=== PATIENT | female | born 1995 | race Caucasian/White ===

== ENCOUNTER 2017-01-12 13:25 | Emergency (ER) | payer OTHER ==
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
--- NOTE | 2017-01-16 15:53 | ED MED RECONCILIATION SUMMARY ---
Patient: ROCIO CRUZ Medication Reconciliation Report [facility] VisitID: [id number] [address] [place] [address] 21y, F Registration Date/Time: 01/12/2017 Weight: 107.0 kg Height/Length: 66 in. BMI: 38.1 ALLERGIES: None The patient's Home Medications are listed below: NONE. The source(s) of the original Home Medication information: Not obtained. The following Medications were given to the patient in the Emergency Department: None. The following Medications were prescribed to the patient: Robaxin 750 mg: take 1 orally every 8 hours for 5 days, as needed for muscle spasm. Dispense fifteen (15). Substitution is permissible. -- Otilia Hernández, P.A.-C Ibuprofen 800 mg tablets: take 1 tablet orally every 8 hours for 5 days, as needed for pain. Dispense fifteen (15). No refill. -- Otilia Hernández, P.A.-C
--- NOTE | 2017-01-16 15:53 | ED MED RECONCILIATION SUMMARY ---
Patient: ROCIO CRUZ Medication Reconciliation Report [facility] VisitID: [id number] [address] [place] [address] 21y, F Registration Date/Time: 01/12/2017 Weight: 107.0 kg Height/Length: 66 in. BMI: 38.1 ALLERGIES: None The patient's Home Medications are listed below: NONE. The source(s) of the original Home Medication information: Not obtained. The following Medications were given to the patient in the Emergency Department: None. The following Medications were prescribed to the patient: Robaxin 750 mg: take 1 orally every 8 hours for 5 days, as needed for muscle spasm. Dispense fifteen (15). Substitution is permissible. -- Otilia Hernández, P.A.-C Ibuprofen 800 mg tablets: take 1 tablet orally every 8 hours for 5 days, as needed for pain. Dispense fifteen (15). No refill. -- Otilia Hernández, P.A.-C
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
--- NOTE | 2017-01-16 15:53 | ED MAR SUMMARY ---
..... Medication Administration Record [facility] [address] [place], [place] [id number] Patient: ROCIO CRUZ Fartun Visit ID: [id number] 21y, F Weight: 107.0 kg Height/Length: 66 in BMI: 38.1 ALLERGIES: None
--- NOTE | 2017-01-16 15:53 | ED MAR SUMMARY ---
..... Medication Administration Record [facility] [address] [place], [place] [id number] Patient: ROCIO CRUZ Fartun Visit ID: [id number] 21y, F Weight: 107.0 kg Height/Length: 66 in BMI: 38.1 ALLERGIES: None
== END 2017-01-12 14:07 | disposition home or self-care (01) ==
LOC: ED SRH 13:25
DX: S39.012A Strain of muscle, fascia and tendon of lower back, initial encounter (principal); V43.61XA Car passenger injured in collision with sport utility vehicle in traffic accident, initial encounter; Y92.410 Unspecified street and highway as the place of occurrence of the external cause